=== PATIENT | female | born 1975 | race Two or more races ===

== ENCOUNTER → 2018-08-16 | Outpatient (CLI) | payer BC ==
--- NOTE | 2018-08-16 14:58 | KCIC ---
Ultrasound of the left knee area HISTORY: Posterior pain. FINDINGS: Ultrasound is performed in the area of concern, at the posterior knee. No abnormal fluid collection, mass lesion or enlarged lymph nodes are identified. IMPRESSION: No sonographic abnormality at the area of concern. Electronically signed by: Christopher Pierre MD (08/16/2018 2:53 PM) [id number]
== END | disposition home or self-care (01) ==
LOC: KCIC US 13:09
PROVIDERS: ATTEND Family Medicine
DX: M71.22 Synovial cyst of popliteal space [Baker], left knee (principal)
CPT/HCPCS: 76881

== ENCOUNTER → 2018-08-24 | Outpatient (CLI) | payer BC ==
--- NOTE | 2018-08-28 09:21 | RAD ---
DATE: 08/24/2018 EXAM: MAMMO RAOUL SCREENING BILATERAL HISTORY: Routine screening COMPARISON: None available This study was interpreted with the benefit of Computerized Aided Detection (CAD). Breast Density: HETERO The breast parenchyma is heterogenously dense, which could reduce sensitivity of mammography. Breast parenchyma level C. FINDINGS: 2-D and 3-D tomosynthesis imaging was performed in CC and MLO projections. No suspicious breast densities or microcalcifications are seen. IMPRESSION: There is no mammographic evidence of malignancy in either breast. BI-RADS CATEGORY: 1 NEGATIVE RECOMMENDED FOLLOW-UP: 12M 12 MONTH FOLLOW-UP PQRS compliance statement: Patient information was entered into a reminder system with a target due date for the next mammogram. Mammography is a sensitive method for finding small breast cancers, but it does not detect them all and is not a substitute for careful clinical examination. A negative mammogram does not negate a clinically suspicious finding and should not result in delay in biopsying a clinically suspicious abnormality. "Our facility is accredited by the [employer] Mammography Program."
== END | disposition home or self-care (01) ==
LOC: MAMMO 14:33
PROVIDERS: ATTEND Family Medicine
DX: Z12.31 Encounter for screening mammogram for malignant neoplasm of breast (principal)
CPT/HCPCS: 77063; 77067